=== PATIENT | male | born 1950 | race Caucasian/White ===

== ENCOUNTER 2018-12-18 11:34 | Inpatient (IN) | payer MEDICARE ==
[2018-12-18 14:35] VITALS: BMI 29.7
[2018-12-18] MEDS ORDERED: HYDROcodone/Acetaminophen 5/325 mg Tablet PO PRN ×3 (16:13→16:16)
[2018-12-18] MEDS ORDERED: Ondansetron ODT 4 MG TAB PO PRN (17:12)
[2018-12-18] MEDS ORDERED: ROLAIDS PO PRN (18:28)
[2018-12-18] MEDS: Simvastatin 5 MG TAB PO SCH (21:07)
--- NOTE | 2018-12-19 01:00 | HP ---
PRIMARY CARE PHYSICIAN: Dr. Sullivan from [place]. ORTHOPEDICS: Dr. Luis Eduardo Lyon. REASON FOR ADMISSION: Skilled rehab status post bilateral knee replacement. HISTORY OF THE PRESENT ILLNESS AND HOSPITAL COURSE: Mr. Rankin is a very pleasant 68-year-old white male with medical history significant for hypertension and severe arthritis, who after failed outpatient management, he underwent bilateral knee joint replacement by Dr. Luis Eduardo Lyon on 12/15/2018. The patient is now status post bilateral joint replacement. Per report, he tolerated the surgery well. 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 His blood pressure has been reported to be stable with current medications. The patient is currently on hydrocodone and meloxicam for pain management. He is also on Xarelto for DVT prophylaxis. PAST MEDICAL HISTORY: Hypertension, osteoarthritis, and dyslipidemia. PAST SURGICAL HISTORY: 1. Right shoulder surgery long time ago. 2. Bilateral knee replacement on 12/15/2018, by Dr. Luis Eduardo Lyon at [facility]. ALLERGIES: NKDA. SOCIAL HISTORY: Denies tobacco, alcohol, or drug use. Lives with significant other at home. FAMILY HISTORY: Noncontributory. HOME MEDICATIONS: 1. Ramipril 10 mg p.o. daily. 2. Simvastatin 10 mg p.o. q.p.m. 3. Metoprolol 25 mg p.o. daily. 4. Meloxicam 15 p.o. daily. 5. Hydrocodone 5/325 mg p.o. 1 to 2 q.6 hours p.r.n. REVIEW OF SYSTEMS: GENERAL: Negative for fever, chills, fatigue. Reprots general weakness. HEENT: Negative for recent acute change in vision or hearing or cold symptoms. CARDIO: Negative for chest pain, dyspnea on exertion, or palpitations. LUNGS: Negative for cough, hemoptysis, pain with breathing, sputum production. GI: Negative for vomiting, abdominal pain, diarrhea, reports constipation, some indigestion. GENITOURINARY: Negative for frequency, urgency, hematuria, or incontinence. HEMATOLOGIC: Denies any bleeding or bruising. NEUROLOGIC: Denies focal paralysis, paresthesia, or tingling. MUSCULOSKELETAL:Positive for bilateral knee joint pain and also a history of right shoulder surgery in the past. PSYCH: Denies anxiety or depression or hallucinations. PHYSICAL EXAMINATION: VITAL SIGNS: Blood pressure 151/71, temp 99.1, pulse 92, respirations 16, O2 sats 98% on room air. Weight 225 pounds 8 ounces. Height 6 feet 1 inch. GENERAL: The patient is awake, alert, and oriented x3. Not in distress, comfortable on exam. HEENT: Normocephalic, atraumatic. PERRL. Nonicteric sclerae. Oral mucosa is moist. NECK: Supple. Full range of motion. No LAD. CHEST: Normal excursion. Clear to auscultation bilaterally. CARDIAC: RRR. Normal S1 and S2. No murmurs. ABDOMEN: Flat and soft. Normoactive bowel sounds. Nondistended and nontender. No rebound or guarding. Negative CVA tenderness bilaterally. EXTREMITIES: No edema. No cyanosis. SKIN: Postoperative site on both anterior knee are dry, no drainage, no surrounding erythema. No swelling. No signs of infection. [place], complete and in place. NEUROLOGIC: Awake, alert, and oriented x3. Nonfocal. Gait unsteady. LABORATORY DATA: Recent lab works: Hemoglobin 9.9 on 12/18/2018, hematocrit 28.4. Sodium 135, potassium 3.7, chloride 106, glucose 123, BUN 9, creatinine 0.8, calcium is 7.7. Previous labs on 12/16/2018, hemoglobin 13.6, hematocrit 39.5. ASSESSMENT: 1. Deconditioning. 2. Status post total knee replacement bilateral, for severe arthritis. 3. Acute blood loss anemia. 4. Hypertension. 5. Hypocalcemia on routine labs. 6. Dyslipidemia. 7. General weakness. 8. Unsteady gait, needing assistance. PLAN: 1. The patient is admitted to [facility] for purposes of skilled rehab, post surgery. We will refer to OT and PT. 2. We will continue current medications as modified per list. 3. We will add iron supplement, stool softener, and antiemetics. 4. I will monitor the patient for any medical comorbidities that may interfere with rehab progress. 5. GI prophylaxis with PPI. 6. DVT prophylaxis with Xarelto, until 01/15/19 per Ortho recommendation. ESTIMATED LENGTH OF STAY: Estimated length of stay is 2 to 3 weeks. CODE STATUS: Full code. Job ID: [id number] [facility]
[2018-12-19 05:50] LABS: #Basophils 0.1 thou/uL (0.0-0.2); #Eosinphils 0.1 thou/uL (0.0-0.7); #Lymphocytes 2.4 thou/uL (1.20-3.40); #Monocytes 0.8 thou/uL (0.11-0.59); #Neutrophils 6.2 thou/uL (1.40-6.50); %Basophils 0.9 % (0.0-1.0); %Eosinophils 0.9 % (0.0-10.0); %Lymphocytes 25.3 % (21.0-51.0); %Monocytes 8.5 % (0.0-10.0); %Neutrophils 64.4 % (42.0-75.0); Hemoglobin 9.5 g/dL (14.0-18.0); Mean Corpuscular HGB CONC 33.4 g/dL (32.0-36.0); Mean Corpuscular Hemoglobin 31.3 pg (27.0-31.0); Mean Corpuscular Volume 93.7 fL (78.0-98.0); Mean Platelet Volume 6.2 fL (7.4-10.4); Platelet Count 259 thou/uL (130-400); RBC Distribution Width 11.8 % (11.5-14.5); Red Blood Cell (RBC) Count 3.03 mill/uL (4.70-6.10); White Blood Cell (WBC) Count 9.7 thou/uL (4.8-10.8)
[2018-12-19 06:42] LABS: ALT (SGPT) 21 U/L (8-55); AST (SGOT) 25 U/L (5-34); Albumin 3.2 g/dL (3.4-4.8); Alkaline Phosphatase 47 U/L (40-150); Anion Gap 14 mmol/L (10-20); BUN (Urea Nitrogen) 9 mg/dL (8.4-25.7); Bilirubin, Total 1.1 mg/dL (0.2-1.2); Calc. Creatinine Clearance 133 mL/min (70-130); Calcium 8.4 mg/dL (7.8-10.44); Carbon Dioxide 24 mmol/L (23-31); Chloride 104 mmol/L (98-107); Estimated GFR-MDRD Greater than 90; Globulin 2.9 g/dL (2.4-3.5); Glucose 120 mg/dL (80-115); Protein, Total 6.1 g/dL (5.8-8.1); Sodium 138 mmol/L (136-145)
[2018-12-19] MEDS: Rivaroxaban 10 MG TAB PO SCH (09:54)
[2018-12-19] MEDS: Meloxicam 7.5 MG TAB PO SCH (09:54)
[2018-12-19] MEDS: HYDROcodone/Acetaminophen 5/325 mg Tablet PO PRN (10:44)
[2018-12-19] MEDS: Simvastatin 5 MG TAB PO SCH (20:09)
[2018-12-20] MEDS: Meloxicam 7.5 MG TAB PO SCH (09:03)
[2018-12-20] MEDS: Rivaroxaban 10 MG TAB PO SCH (09:05)
[2018-12-20] MEDS: Bisacodyl 5 MG TAB PO PRN (20:36)
[2018-12-20] MEDS: Docusate 100 MG CAP PO SCH (20:36)
[2018-12-20] MEDS: Simvastatin 5 MG TAB PO SCH (20:37)
[2018-12-20] MEDS ORDERED: Docusate 100 MG CAP PO SCH (20:45)
[2018-12-20] MEDS: HYDROcodone/Acetaminophen 5/325 mg Tablet PO PRN (20:50)
[2018-12-21] MEDS: HYDROcodone/Acetaminophen 5/325 mg Tablet PO PRN ×3 (08:02→20:50)
[2018-12-21] MEDS: Meloxicam 7.5 MG TAB PO SCH (08:02)
[2018-12-21] MEDS: Docusate 100 MG CAP PO SCH (08:04)
[2018-12-21] MEDS: Rivaroxaban 10 MG TAB PO SCH (08:04)
[2018-12-21] MEDS: Bisacodyl 5 MG TAB PO PRN (15:01)
[2018-12-21] MEDS: Simvastatin 5 MG TAB PO SCH (20:49)
[2018-12-22] MEDS: Meloxicam 7.5 MG TAB PO SCH (09:12)
[2018-12-22] MEDS: Rivaroxaban 10 MG TAB PO SCH (09:12)
[2018-12-22] MEDS: Docusate 100 MG CAP PO SCH (09:12)
[2018-12-22] MEDS: HYDROcodone/Acetaminophen 5/325 mg Tablet PO PRN (14:57)
[2018-12-22] MEDS: Bisacodyl 5 MG TAB PO PRN (14:58)
[2018-12-22] MEDS ORDERED: Fleet Enema 133 ML BOT PR PRN (19:45)
[2018-12-22] MEDS ORDERED: Bisacodyl 10 MG SUPP PR PRN (19:45)
[2018-12-22] MEDS: Simvastatin 5 MG TAB PO SCH (20:05)
[2018-12-22] MEDS: Polyethylene Glycol 3350 17 GM Packet PO SCH (20:06)
[2018-12-23] MEDS: Meloxicam 7.5 MG TAB PO SCH (08:09)
[2018-12-23] MEDS: Rivaroxaban 10 MG TAB PO SCH (08:10)
[2018-12-23] MEDS: Docusate 100 MG CAP PO SCH (08:10)
[2018-12-23] MEDS: Simvastatin 5 MG TAB PO SCH (20:52)
[2018-12-23] MEDS: Polyethylene Glycol 3350 17 GM Packet PO SCH (20:52)
[2018-12-24] MEDS: Meloxicam 7.5 MG TAB PO SCH (08:48)
[2018-12-24] MEDS: Docusate 100 MG CAP PO SCH (08:49)
[2018-12-24] MEDS: Rivaroxaban 10 MG TAB PO SCH (08:49)
[2018-12-24] MEDS: Polyethylene Glycol 3350 17 GM Packet PO SCH (21:06)
[2018-12-24] MEDS: Simvastatin 5 MG TAB PO SCH (21:06)
[2018-12-25] MEDS: Meloxicam 7.5 MG TAB PO SCH (09:56)
[2018-12-25] MEDS: Rivaroxaban 10 MG TAB PO SCH (09:56)
[2018-12-25] MEDS: Docusate 100 MG CAP PO SCH (09:56)
[2018-12-25] MEDS: Simvastatin 5 MG TAB PO SCH (20:12)
[2018-12-25] MEDS: Polyethylene Glycol 3350 17 GM Packet PO SCH (20:13)
[2018-12-26] MEDS: Meloxicam 7.5 MG TAB PO SCH (09:11)
[2018-12-26] MEDS: Rivaroxaban 10 MG TAB PO SCH (09:12)
[2018-12-26] MEDS: Docusate 100 MG CAP PO SCH (09:13)
[2018-12-26] MEDS: Simvastatin 5 MG TAB PO SCH (20:01)
[2018-12-26] MEDS: Polyethylene Glycol 3350 17 GM Packet PO SCH (20:01)
[2018-12-27] MEDS: Meloxicam 7.5 MG TAB PO SCH (08:05)
[2018-12-27] MEDS: Docusate 100 MG CAP PO SCH (08:05)
[2018-12-27] MEDS: Rivaroxaban 10 MG TAB PO SCH (08:06)
[2018-12-27] MEDS: Polyethylene Glycol 3350 17 GM Packet PO SCH (20:47)
[2018-12-27] MEDS: HYDROcodone/Acetaminophen 5/325 mg Tablet PO PRN (20:49)
[2018-12-27] MEDS: Simvastatin 5 MG TAB PO SCH (20:50)
[2018-12-28] MEDS: Meloxicam 7.5 MG TAB PO SCH (09:37)
[2018-12-28] MEDS: Docusate 100 MG CAP PO SCH (09:37)
[2018-12-28] MEDS: Rivaroxaban 10 MG TAB PO SCH (09:38)
[2018-12-28] MEDS: HYDROcodone/Acetaminophen 5/325 mg Tablet PO PRN (20:37)
[2018-12-28] MEDS: Polyethylene Glycol 3350 17 GM Packet PO SCH (20:37)
[2018-12-28] MEDS: Simvastatin 5 MG TAB PO SCH (20:42)
[2018-12-29 07:58] VITALS: TEMP 98.1
[2018-12-29] MEDS: Docusate 100 MG CAP PO SCH (08:37)
[2018-12-29] MEDS: Rivaroxaban 10 MG TAB PO SCH (08:37)
[2018-12-29] MEDS: Meloxicam 7.5 MG TAB PO SCH (08:37)
[2018-12-29 08:39] VITALS: BP 134/78
--- NOTE | 2018-12-30 02:43 | DIS ---
DATE OF ADMISSION: 12/18/2018 DATE OF DISCHARGE: 12/29/2018 PRIMARY CARE PHYSICIAN: Dr. Crane from [place]. ORTHOPEDIC: Dr. Luis Eduardo Lyon. REASON FOR ADMISSION: Skilled rehab after bilateral knee replacement. FINAL DIAGNOSES: 1. Physical deconditioning. 2. Status post total knee replacement bilaterally secondary to severe arthritis of both knees. 3. Acute blood loss anemia secondary to postoperative anemia. 4. General weakness, improved. 5. Unsteady gait, needing assistance. 6. Constipation. SECONDARY DIAGNOSES: Hypertension, dyslipidemia. DISPOSITION: Home. CONDITION ON DISCHARGE: Stable. MEDICATIONS: 1. Ferrous sulfate 325 mg p.o. daily. 2. Xarelto 10 mg p.o. daily until January 05 for DVT prophylaxis. 3. Hydrocodone 5/325 mg p.o. 1-2 q.6 p.r.n. 4. Ramipril 5 mg p.o. daily. 5. Metoprolol 25 mg p.o. daily. 6. Polyethylene glycol 17 g p.o. daily. 7. Simvastatin 10 mg p.o. at bedtime. 8. Bisacodyl 5 mg p.o. daily p.r.n. 9. Docusate 100 mg p.o. daily. 10. Pantoprazole 40 mg p.o. daily. DIET: Heart healthy. ACTIVITY: To use rolling walker at all times until further recommendations from Ortho. FOLLOWUP: 1. Follow up with Ortho in 1 to 2 weeks or as previously scheduled. 2. Follow up with PCP in 2 weeks, sooner with concern. 3. Follow up with [facility] on December 31, 2018 or as scheduled. HISTORY OF THE PRESENT ILLNESS AND HOSPITAL COURSE: Mr. Rankin is a very pleasant 68-year-old male with significant history of severe osteoarthritis of the knee, who after failed outpatient management, underwent bilateral knee joint replacement in [facility]. This was done by Dr. Luis Eduardo Lyon on 12/15/2018. The patient's postoperative course was reported unremarkable except for anemia deemed to be an acute blood loss from postoperative blood loss. The patient underwent skilled rehab in [facility] and was transferred on 12/18/2018. The patient did well and tolerated rehab without significant complications. His overall pain is well controlled with the use of [place] as needed. The patient was walking about 250 feet using his rolling walker prior to discharge. The patient already followed up with Dr. Hoff postoperatively and his subhash were likewise removed. Postoperative site has been healing appropriately without significant complications. He is currently on Xarelto for DVT prophylaxis, which was recommended by Dr. Lyon until January 05. The patient will also start on [id number] iron supplement. Labs prior to discharge, WBC 6.0, hemoglobin 9.5 on 12/19/2018 and hematocrit of 28.4, platelets 259, and WBC 9.7. BUN 9 and creatinine 0.76 on 12/19/2018. PHYSICAL EXAMINATION: VITAL SIGNS: Prior to discharge; blood pressure 134/78, temperature 98.1, pulse 63, respirations 18, O2 sats 96%, weight 225 pounds and 8 ounces, height 6 feet 1 inch. GENERAL: The patient is awake, alert, and oriented x3. Not in distress. HEENT: Normocephalic, atraumatic. PERRL. Intact EOM. Anicteric sclerae. Oral mucosa is moist. NECK: Supple with full range of motion. No swelling. No lymphadenopathy. CHEST: Normal excursion. Clear to auscultation bilaterally. CARDIAC: RRR. Normal S1 and S2. No murmurs. ABDOMEN: Flat, soft. Normoactive bowel sounds. Nondistended, nontender. No rebound. No guarding. EXTREMITIES: No edema. No cyanosis. SKIN: Postoperative site is intact and dry. No drainage. No exudates. No signs of infection. NEURO: Nonfocal. DTRs 2+. Gait unsteady, needing rolling walker for assistive device. Time spent on this discharge 32 minutes. Job ID: [id number]
[2018-12-30] MEDS ORDERED: Ferrous Sulfate 325 MG TAB PO SCH (08:00)
== END 2018-12-29 12:30 | disposition home or self-care (01) | DRG 560 ==
LOC: MADMS 14:23
PROVIDERS: ADMIT Family Medicine; ATTEND Family Medicine
DX: Z47.1 Aftercare following joint replacement surgery (principal); D62 Acute posthemorrhagic anemia; Z96.653 Presence of artificial knee joint, bilateral; I10 Essential (primary) hypertension; E78.5 Hyperlipidemia, unspecified; Z98.890 Other specified postprocedural states; Z79.899 Other long term (current) drug therapy; R26.89 Other abnormalities of gait and mobility; E83.51 Hypocalcemia; R53.1 Weakness; K59.00 Constipation, unspecified
CPT/HCPCS: 80053; 85025; Q0162

== ENCOUNTER 2024-09-12 17:15 | Emergency (ER) | payer MEDICARE, BC ==
[2024-09-12 17:52] LABS: Bilirubin Negative (Negative); Blood, Urine Moderate (Negative); Clarity Clear (Clear); Glucose, Urine (Dipstick) Negative (Negative); Ketone, Urine Negative (Negative); Leukocyte Small (Negative); Nitrite Negative (Negative); Protein, Urine (Dipstick) 30 mg/dL (Neg-Trace); pH, Urine 5.5 (5.0-9.0)
[2024-09-12 17:59] LABS: Bacteria/HPF 1+ HPF (None Seen); CAUTI Indications for Culture Dysuria,urgency,freq; Squamous Epithelial 0-3 HPF (0-3); WBC/HPF 21-50 HPF (0-3)
[2024-09-12 18:00] LABS: Urine Culture Reflex Yes Yes
[2024-09-12] MEDS ORDERED: Ciprofloxacin 500 MG TAB ONE (18:13)
[2024-09-12] MEDS ORDERED: Acetaminophen 500 MG TAB ONE (18:15)
== END 2024-09-12 18:27 | disposition home or self-care (01) ==
LOC: MADERS 17:15
DX: N39.0 Urinary tract infection, site not specified (principal); I10 Essential (primary) hypertension
CPT/HCPCS: 81001; 87077; 87086; 99283